=== PATIENT | male | born 1980 | race American Indian/Alaskan Native ===

== ENCOUNTER 2022-01-09 02:32 | Inpatient (IN) | payer SELFPAY ==
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
--- NOTE | 2022-01-09 03:05 | XRay Report ---
XR chest 1V ap INDICATION / CLINICAL INFORMATION: Dyspnea. COMPARISON: None available. FINDINGS: Findings in the chest are accentuated by body habitus and phase of inspiration. SUPPORT DEVICES: None. HEART /PULMONARY VASCULATURE: Heart is accentuated by low lung volumes. LUNGS / PLEURA: There is asymmetric airspace opacity within the right lung base. Left lung appears cl ear of consolidation. No sizable pleural effusion. No pneumothorax. IMPRESSION: Airspace opacities in the right mid and lower lung, concerning for pneumonia. Signer Name: Yong Lerma MD Signed: 01/09/2022 3:00 AM Workstation Name: [id number]
[2022-01-09 03:08] LABS: ABG PCO2 41.6 mm Hg; ABG PH 7.382 pH Units (7.350-7.450)
[2022-01-09 03:09] LABS: ABG Base Excess -0.9 mmol/L (-2.0-3.0); ABG HCO3 24.2 mmol/L (20.0-26.0); ABG Methemoglobin 0.3 % (0.0-1.5); ABG Oxygen Saturation 98.7 % (95.0-99.0); ABG PO2 129.8 mm Hg (80.0-90.0)
[2022-01-09 03:27] LABS: Basophils % (Auto) 0.8 % (0.0-1.8); Eosinophils % (Auto) 0.6 % (0.0-4.3); Hematocrit 38.5 % (35.5-45.6); Hemoglobin 12.1 gm/dl (11.8-15.2); Lymphocytes # (Auto) 1.2 K/mm3 (1.2-5.4); Lymphocytes % (Auto) 18.9 % (13.4-35.0); Mean Corpuscular HGB Conc 31 % (32-34); Mean Corpuscular Volume 77 fl (84-94); Monocytes # (Auto) 0.2 K/mm3 (0.0-0.8); Monocytes % (Auto) 3.9 % (0.0-7.3); Platelet Count 187 K/mm3 (140-440); Red Blood Count 5.01 M/mm3 (3.65-5.03); Red Cell Distribution Width 14.2 % (13.2-15.2)
[2022-01-09 03:38] LABS: INR 0.95 (0.87-1.13); Partial Thromboplastin Time 25.5 Sec. (24.2-36.6)
[2022-01-09 03:47] LABS: Alanine Aminotransferase 56 units/L (7-56); Albumin 3.8 g/dL (3.9-5); BUN/Creatinine Ratio 16; Bilirubin,Direct < 0.2 mg/dL (0-0.2); Blood Urea Nitrogen 16 mg/dL (9-20); Hemolysis Index 11
[2022-01-09] MEDS ORDERED: POTASSIUM CHLORIDE ER 20 MEQ TAB PO ONE (04:18)
[2022-01-09] MEDS ORDERED: dexAMETHasone 4 MG/ML VIAL IV ONE (04:48)
[2022-01-09] MEDS ORDERED: cefTRIAXone/NS 2 GM/100 ML 2 GM/100 ML BAG IV ONE (04:49)
[2022-01-09] MEDS ORDERED: AZITHROMYCIN/NS 500 MG/250 ML 500 MG/250 ML BAG IV ONE (04:51)
[2022-01-09 04:56] LABS: Bilirubin,Urine NEG (Negative); Blood,Urine SM (Negative); Color,Urine Straw (Yellow); Hyaline Casts,Urine 2 /LPF; Mucus,Urine FEW /HPF; RBC,Urine < 1.0 /HPF (0.0-6.0); Urobilinogen,Urine < 2.0 mg/dL (<2.0)
[2022-01-09] MEDS ORDERED: ALBUTEROL 2.5 MG/3 ML NEBU IH PRN (05:05)
[2022-01-09] MEDS ORDERED: HYDROmorphone 1 MG/1 ML INJ IV PRN (05:05)
[2022-01-09] MEDS ORDERED: ONDANSETRON 4 MG/2 ML INJ IV PRN (05:05)
[2022-01-09] MEDS ORDERED: MORPHINE 2 MG/1 ML INJ IV PRN (05:05)
[2022-01-09] MEDS ORDERED: ACETAMINOPHEN 325 MG TAB PO PRN (05:05)
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
[2022-01-09] MEDS ORDERED: hydrALAZINE 20 MG/1 ML INJ IV PRN (05:20)
[2022-01-09] MEDS ORDERED: DEXTROSE 10% *Hypoglycemia IV PRN (05:20)
[2022-01-09] MEDS: IPRATROPIUM/ALBUTEROL SULFATE 3 ML AMPUL.NEB IH SCH ×3 (08:00→20:30)
--- NOTE | 2022-01-09 10:25 | Electrocardiograph Report ---
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
[2022-01-09] MEDS: FUROSEMIDE 40 MG/4 ML INJ IV SCH ×3 (10:37→17:20)
[2022-01-09] MEDS: INSULIN LISPRO 100 UNIT/ML SUB-Q SCH ×4 (10:37→21:41)
[2022-01-09 11:43] LABS: BUN/Creatinine Ratio 15; Blood Urea Nitrogen 15 mg/dL (9-20); Calcium 9.2 mg/dL (8.4-10.2); Hemolysis Index 2
[2022-01-09] MEDS: HEPARIN 5,000 UNIT/1 ML VIAL SUB-Q SCH ×2 (12:13→21:40)
[2022-01-09] MEDS: dexAMETHasone 4 MG/ML VIAL IV SCH (12:13)
[2022-01-09] MEDS: LISINOPRIL 5 MG TAB PO SCH (12:16)
[2022-01-09] MEDS: FAMOTIDINE 20 MG TAB PO SCH ×2 (12:16→21:40)
--- NOTE | 2022-01-09 12:54 | Vascular Lab Report ---
DUPLEX DOPPLER LOWER EXTREMITY VEINS, BILATERAL INDICATION: Shortness of Breath R/O DVT. TECHNIQUE: Duplex doppler imaging was performed through the veins of both lower extremities using ve nous compression and other maneuvers. COMPARISON: No relevant prior imaging study available. FINDINGS: Right Common femoral vein: Negative. Right Superficial femoral vein: Negative. Right Popliteal vein: Negative. Right Calf veins: Negative. Left Common femoral vein: Negative. Left Superficial femoral vein: Negative. Left Popliteal vein: Negative. Left Calf veins: Negative. Additional findings: There is mild nonspecific pedal edema bilaterally. Right popliteal cyst is ident ified measuring up to 3.3 cm in greatest dimension. IMPRESSION: No sonographic evidence for DVT in either lower extremity. Generalized edema. Right popliteal cyst. Signer Name: Wali Douglass Jr, MD Signed: 01/09/2022 12:50 PM Workstation Name: [id number]
--- NOTE | 2022-01-09 20:18 | Event Note ---
Date: 01/09/22 Brief progress note: Chart reviewed, patient interviewed and examined by me today. 41-year-old male with morbid obesity, suspected sleep apnea, HTN and DM has no health insurance. He will take his medications occasionally to stretch them. He is admitted for hypertensive urgency and dyspnea and a likely hypertensive heart failure. We will continue IV Lasix, BILL inhibitor and add Coreg. Symptoms improving since admitted. Echocardiogram ordered and cardiology consulted. Will monitor closely.
[2022-01-09] MEDS: carvediloL 6.25 MG TAB PO SCH (21:40)
[2022-01-10] MEDS ORDERED: MELATONIN 5 MG TAB PO ONE (01:00)
[2022-01-10 05:05] LABS: Basophils # (Auto) 0.1 K/mm3 (0.0-0.1); Hematocrit 37.8 % (35.5-45.6); Hemoglobin 11.9 gm/dl (11.8-15.2); Lymphocytes # (Auto) 1.4 K/mm3 (1.2-5.4); Lymphocytes % (Auto) 17.6 % (13.4-35.0); Mean Corpuscular HGB Conc 31 % (32-34); Mean Corpuscular Volume 77 fl (84-94); Monocytes # (Auto) 0.7 K/mm3 (0.0-0.8); Platelet Count 187 K/mm3 (140-440); Red Blood Count 4.91 M/mm3 (3.65-5.03); Red Cell Distribution Width 14.4 % (13.2-15.2)
[2022-01-10] MEDS: cefTRIAXone/NS 2 GM/100 ML 2 GM/100 ML BAG IV SCH (05:10)
[2022-01-10] MEDS: FUROSEMIDE 40 MG/4 ML INJ IV SCH ×2 (05:10→18:06)
[2022-01-10 05:27] LABS: BUN/Creatinine Ratio 17; Blood Urea Nitrogen 17 mg/dL (9-20); Calcium 9.2 mg/dL (8.4-10.2); Hemolysis Index 17
[2022-01-10] MEDS ORDERED: AZITHROMYCIN/NS 500 MG/250 ML 500 MG/250 ML BAG IV SCH (06:00)
[2022-01-10] MEDS: IPRATROPIUM/ALBUTEROL SULFATE 3 ML AMPUL.NEB IH SCH ×3 (08:09→20:14)
[2022-01-10] MEDS: INSULIN LISPRO 100 UNIT/ML SUB-Q SCH ×4 (09:45→22:15)
[2022-01-10] MEDS: carvediloL 6.25 MG TAB PO SCH (09:46)
[2022-01-10] MEDS: LISINOPRIL 5 MG TAB PO SCH (09:46)
[2022-01-10] MEDS: HEPARIN 5,000 UNIT/1 ML VIAL SUB-Q SCH ×2 (09:46→22:14)
[2022-01-10] MEDS: FAMOTIDINE 20 MG TAB PO SCH ×2 (09:46→22:14)
[2022-01-10] MEDS: dexAMETHasone 4 MG/ML VIAL IV SCH (09:46)
[2022-01-10] MEDS: AZITHROMYCIN 250 MG TAB PO SCH (09:50)
[2022-01-10] MEDS ORDERED: carvediloL 6.25 MG TAB PO SCH (12:35)
[2022-01-10] MEDS: POTASSIUM CHLORIDE ER 20 MEQ TAB PO SCH (12:53)
[2022-01-10] MEDS ORDERED: MAGNESIUM SULFATE 4 GM/100 ML BAG IV ONE (13:30)
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
--- NOTE | 2022-01-10 20:57 | Progress Note ---
Assessment and Plan Assessment and plan: 41 years old male with past medical history of morbid obesity, JAMILA on CPAP, hypertension, congestive heart failure, diabetes type 2 and noncompliance presents with progressive shortness of breath for the last couple of days. EMS found the patient tripoding with respiratory distress and diffuse Rales th roughout the bilateral lung field. Initial saturation was in the low 80s. And initial blood pressures was 260/140 with heart rate of 130. Subsequently patient was placed on CPAP and given 40 mg of IV Lasix and 2 g of magnesium as well as nitro. Patient has been ran out of his medication for a while. For the last 2 3 days patient feels shortness of breath but today shortness of breath became much worse with chest pain which improved after being placed to CPAP in the ambulance. Patient denied any increased swelling to the lower extremity. Or any other associated symptom. Patient is not vaccinated against COVID-19 In the emergency room patient is found to have BNP of 766. Troponin 0 0.010, glucose 331, potassium 3.4. Rest x-ray shows airspace opacities in the right mid and lower lung concerning for possible pneumonia. We are going to admit the patient we will put the patient on pneumonia and CHF pathway patient is on BiPAP. (1) Acute exacerbation of CHF (congestive heart failure) History of dilated cardiomyopathy Current Visit: Yes Status: Acute Plan to address problem: Patient with history of dilated cardiomyopathy. Noncompliant with medications and follow-up visits. Admitted the patient to the medical telemetry. Fluid restriction. Maintain input output. Patient is on BiPAP. Lasix 40 mg IV every 12 hours. Daily weight. Echocardiogram showed LVEF 20 to 25% with severe global LV hypokinesis, noted LVH, diastolic dysfunction indeterminate. Left atrium normal. Right atrium and RV mildly dilated. RV function normal. No valvular dysfunction. Likely etiology appears to be uncontrolled hypertension and JAMILA. Reportedly previous ischemic work-up negative. Cardiology consulted and evaluating. Dyspnea improving. (2) Acute respiratory failure with hypoxia Current Visit: Yes Status: Acute Plan to address problem: . Improving, wean O2 as tolerated. (3) Flash pulmonary edema likely from hypertensive urgency. Current Visit: Yes Status: Acute Plan to address problem: Fluid restriction. Maintain input output. Patient is on BiPAP. Lasix 40 mg IV every 12 hours. Daily weight. (4) diabetes mellitus, A1c 9.1 with hyperglycemia When out of Metformin Current Visit: Yes Status: Acute Plan to address problem: Resume Metformin. Insulin sliding scale. 1800 kcal ADA diet. Accu-Chek before meals and at bedtime with Humalog moderate dose coverage. Diabetic education. Will discontinue Decadron. (5) Hypertensive emergency Current Visit: Yes Status: Acute Plan to address problem: Resolved. BP control progressive improvement. Optimizing oral medical therapy. (6) Hypokalemia Current Visit: Yes Status: Acute Plan to address problem: Potassium is supplemented. Recheck BMP in the morning (7) likely not pneumonia and more likely CHF changes on CXR given the clinical setting. Current Visit: Yes Status: Acute Plan to address problem: DuoNeb by nebulizer every 4 hours. Albuterol via nebulizer every 4 hours. Start him antibiotics empirically. Rocephin 2 g IV daily. Zithromax 500 mg IV daily. Ordered blood cultures sputum culture. We will discontinue Decadron. Consult pulmonary if needed (8) PCR test negative for COVID-19 virus infection (9) Morbid obesity Current Visit: Yes Status: Acute (10) obstructive sleep apnea, home CPAP malfunction Current Visit: Yes Status: Acute Plan to address problem: Patient reports new CPAP machine quit working about couple months ago. Patient is receiving BiPAP nightly here. He will need to resume using CPAP upon discharge. (11) DVT prophylaxis Current Visit: Yes Status: Acute Plan to address problem: Heparin 5000 units subcu every 12 hours for DVT prophylaxis. Pepcid 20 mg p.o. twice daily for GI prophylaxis. Patient is a full code Discussed with the patient and the nursing staff. History Interval history: Patient reports breathing much better. BP control is improving. Patient reports that he gets multiple times during the night due to sleep apnea. He is receiving BiPAP nightly. He was using CPAP nightly but is quit working couple months ago. Patient denies chest pains, palpitations or lightheadedness. Remains on IV Lasix for aggressive diuresis. Cardiology is evaluating. Hospitalist Physical - Constitutional Vitals: Temp Pulse Resp BP Pulse Ox 98.7 F 90 16 134/80 100 01/10/22 16:18 01/10/22 20:15 01/10/22 20:15 01/10/22 16:18 01/10/22 20:19 General appearance: Present: no acute distress, obese (Morbidly obese) - EENT Eyes: Present: PERRL, EOM intact ENT: clear oral mucosa (Oropharynx crowded.) - Neck Neck: Present: supple - Respiratory Respiratory effort: normal Respiratory: bilateral: diminished, negative: rales, rhonchi, wheezing - Cardiovascular Rhythm: regular - Extremities Extremities: No edema - Abdominal General gastrointestinal: soft, non-tender - Integumentary Integumentary: Absent: rash - Psychiatric Psychiatric: appropriate mood/affect - Neurologic Neurologic: no focal deficits, moves all extremities HEART Score - HEART Score Troponin: Troponin T < 0.010 ng/mL (0.00-0.029) 01/09/22 09:05 Results - Labs CBC & Chem 7: 01/10/22 04:28 01/10/22 04:28 Labs: Laboratory Last Values WBC 7.9 K/mm3 (4.5-11.0) 01/10/22 04:28 RBC 4.91 M/mm3 (3.65-5.03) 01/10/22 04:28 Hgb 11.9 gm/dl (11.8-15.2) 01/10/22 04:28 Hct 37.8 % (35.5-45.6) 01/10/22 04:28 MCV 77 fl (84-94) L 01/10/22 04:28 MCH 24 pg (28-32) L 01/10/22 04:28 MCHC 31 % (32-34) L 01/10/22 04:28 RDW 14.4 % (13.2-15.2) 01/10/22 04:28 Plt Count 187 K/mm3 (140-440) 01/10/22 04:28 Lymph % (Auto) 17.6 % (13.4-35.0) 01/10/22 04:28 [place] % (Auto) 9.0 % (0.0-7.3) H 01/10/22 04:28 Eos % (Auto) 0.0 % (0.0-4.3) 01/10/22 04:28 Baso % (Auto) 1.0 % (0.0-1.8) 01/10/22 04:28 Lymph # (Auto) 1.4 K/mm3 (1.2-5.4) 01/10/22 04:28 [place] # (Auto) 0.7 K/mm3 (0.0-0.8) 01/10/22 04:28 Eos # (Auto) 0.0 K/mm3 (0.0-0.4) 01/10/22 04:28 Baso # (Auto) 0.1 K/mm3 (0.0-0.1) 01/10/22 04:28 Seg Neutrophils % 72.4 % (40.0-70.0) H 01/10/22 04:28 Seg Neutrophils # 5.7 K/mm3 (1.8-7.7) 01/10/22 04:28 PT 13.7 Sec. (12.2-14.9) 01/09/22 02:57 INR 0.95 (0.87-1.13) 01/09/22 02:57 APTT 25.5 Sec. (24.2-36.6) 01/09/22 02:57 ABG pH 7.382 pH Units (7.350-7.450) 01/09/22 03:00 ABG pCO2 41.6 mm Hg 01/09/22 03:00 ABG pO2 129.8 mm Hg (80.0-90.0) H 01/09/22 03:00 ABG HCO3 24.2 mmol/L (20.0-26.0) 01/09/22 03:00 ABG O2 Saturation 98.7 % (95.0-99.0) 01/09/22 03:00 ABG Base Excess -0.9 mmol/L (-2.0-3.0) 01/09/22 03:00 ABG Hemoglobin 12.9 gm/dl (14.0-18.0) L 01/09/22 03:00 ABG Carboxyhemoglobin 2.7 % (0.0-5.0) 01/09/22 03:00 ABG Methemoglobin 0.3 % (0.0-1.5) 01/09/22 03:00 Oxyhemoglobin 95.7 % (95.0-99.0) 01/09/22 03:00 FiO2 100.0 % 01/09/22 03:00 Sodium 141 mmol/L (137-145) 01/10/22 04:28 Potassium 3.8 mmol/L (3.6-5.0) 01/10/22 04:28 Chloride 103.5 mmol/L (98-107) 01/10/22 04:28 Carbon Dioxide 23 mmol/L (22-30) 01/10/22 04:28 Anion Gap 18 mmol/L 01/10/22 04:28 BUN 17 mg/dL (9-20) 01/10/22 04:28 Creatinine 1.0 mg/dL (0.8-1.3) 01/10/22 04:28 Estimated GFR > 60 ml/min 01/10/22 04:28 BUN/Creatinine Ratio 17 % 01/10/22 04:28 Glucose 269 mg/dL (75-100) H 01/10/22 04:28 POC Glucose 215 mg/dL (70-105) H 01/10/22 20:25 Hemoglobin A1c 9.1 % (4-6) H 01/09/22 02:57 Calcium 9.2 mg/dL (8.4-10.2) 01/10/22 04:28 Magnesium 1.70 mg/dL (1.7-2.3) 01/10/22 04:28 Total Bilirubin 0.70 mg/dL (0.1-1.2) 01/09/22 02:57 Direct Bilirubin < 0.2 mg/dL (0-0.2) 01/09/22 02:57 Indirect Bilirubin 0.5 mg/dL 01/09/22 02:57 AST 55 units/L (5-40) H 01/09/22 02:57 ALT 56 units/L (7-56) 01/09/22 02:57 Alkaline Phosphatase 99 units/L (35-129) 01/09/22 02:57 Total Creatine Kinase 315 units/L (55-170) H 01/09/22 02:57 CK-MB (CK-2) 4.0 ng/mL (0.0-4.0) 01/09/22 02:57 CK-MB (CK-2) Rel Index 1.2 (0-4) 01/09/22 02:57 Troponin T < 0.010 ng/mL (0.00-0.029) 01/09/22 09:05 NT-Pro-B Natriuret Pep 766.0 pg/mL (0-450) H 01/09/22 02:57 Total Protein 7.0 g/dL (6.3-8.2) 01/09/22 02:57 Albumin 3.8 g/dL (3.9-5) L 01/09/22 02:57 Albumin/Globulin Ratio 1.2 % 01/09/22 02:57 Urine Color Straw (Yellow) 01/09/22 04:46 Urine Turbidity Clear (Clear) 01/09/22 04:46 Urine pH 5.0 (5.0-7.0) 01/09/22 04:46 Ur Specific [place] 1.009 (1.003-1.030) 01/09/22 04:46 Urine Protein 100 mg/dl mg/dL (Negative) 01/09/22 04:46 Urine Glucose (UA) 150 mg/dL (Negative) 01/09/22 04:46 Urine Ketones Neg mg/dL (Negative) 01/09/22 04:46 Urine Blood Sm (Negative) 01/09/22 04:46 Urine Nitrite Neg (Negative) 01/09/22 04:46 Urine Bilirubin Neg (Negative) 01/09/22 04:46 Urine Urobilinogen < 2.0 mg/dL (<2.0) 01/09/22 04:46 Ur Leukocyte Esterase Neg (Negative) 01/09/22 04:46 Urine WBC (Auto) 4.0 /HPF (0.0-6.0) 01/09/22 04:46 Urine RBC (Auto) < 1.0 /HPF (0.0-6.0) 01/09/22 04:46 Hyaline Casts 2 /LPF 01/09/22 04:46 Urine Mucus Few /HPF 01/09/22 04:46 Coronavirus (PCR) Negative (Negative) 01/10/22 08:12 Microbiology: Microbiology 01/09/22 04:46 Urine,Clean Catch Urine Culture - Preliminary NO GROWTH AFTER 24 HOURS 01/09/22 03:49 Peripheral/Venous Blood Culture - Preliminary NO GROWTH AFTER 24 HOURS 01/09/22 02:57 Peripheral/Venous Blood Culture - Preliminary NO GROWTH AFTER 24 HOURS Active Medications - Current Medications Current Medications: Generic Name Dose Route Start Last Admin Trade Name Freq PRN Reason Stop Dose Admin Acetaminophen 650 mg 01/09/22 05:05 Acetaminophen 325 Mg Tab PO Q4H PRN Pain MILD(1-3)/Fever >100.5/MARTINEZ Albuterol 2.5 mg 01/09/22 05:05 Albuterol 2.5 Mg/3 Ml Nebu IH Q3HRT PRN Shortness Of Breath Albuterol/Ipratropium 1 ampul 01/09/22 20:00 01/10/22 20:14 Ipratropium/Albuterol Sulfate 3 Ml Ampul.Neb IH 1 ampul TIDRT MELANIE Administration Azithromycin 500 mg 01/10/22 10:00 01/10/22 09:50 Azithromycin 250 Mg Tab PO 01/13/22 10:01 500 mg QDAY MELANIE Administration Protocol Carvedilol 25 mg 01/10/22 22:00 Carvedilol 25 Mg Tab PO Q12HR MELANIE Dexamethasone 6 mg 01/09/22 10:00 01/10/22 09:46 Dexamethasone 4 Mg/Ml Vial IV 6 mg DAILY MELANIE Administration Dextrose 0 ml 01/09/22 05:20 Dextrose 10% *Hypoglycemia IV DIRECT PRN Hypoglycemia Protocol Famotidine 20 mg 01/09/22 10:00 01/10/22 09:46 Famotidine 20 Mg Tab PO 20 mg BID MELANIE Administration Furosemide 40 mg 01/09/22 06:00 01/10/22 18:06 Furosemide 40 Mg/4 Ml Inj IV 40 mg BID@0600,1800 MELANIE Administration Heparin Sodium (Porcine) 5,000 unit 01/09/22 10:00 01/10/22 09:46 Heparin 5,000 Unit/1 Ml Vial SUB-Q 5,000 unit Q12HR MELANIE Administration Hydralazine HCl 10 mg 01/09/22 05:20 Hydralazine 20 Mg/1 Ml Inj IV Q6H PRN Blood Pressure Ceftriaxone Sodium 2 gm in 100 mls @ 200 mls/hr 01/10/22 06:00 01/10/22 05:10 Rocephin/Ns 2 Gm/100 Ml IV 01/13/22 06:29 200 mls/hr Q24H MELANIE Administration Protocol Insulin Human Lispro 0 unit 01/09/22 07:30 01/10/22 18:06 Insulin Lispro 100 Unit/Ml SUB-Q 8 unit ACHS MELANIE Administration Protocol Lisinopril 2.5 mg 01/09/22 10:00 01/10/22 09:46 Lisinopril 5 Mg Tab PO 2.5 mg QDAY MELANIE Administration Morphine Sulfate 2 mg 01/09/22 05:05 Morphine 2 Mg/1 Ml Inj IV Q4H PRN Pain, Moderate (4-6) Ondansetron HCl 4 mg 01/09/22 05:05 Ondansetron 4 Mg/2 Ml Inj IV Q8H PRN Nausea And Vomiting Potassium Chloride 40 meq 01/10/22 13:00 01/10/22 12:53 Potassium Chloride Er 20 Meq Tab PO 40 meq QDAY MELANIE Administration Sodium Chloride 10 ml 01/09/22 10:00 01/10/22 09:47 Sodium Chloride 0.9% 10 Ml Flush Syringe IV 10 ml BID MELANIE Administration Sodium Chloride 10 ml 01/09/22 05:05 Sodium Chloride 0.9% 10 Ml Flush Syringe IV PRN PRN LINE FLUSH Nutrition/Malnutrition Assess - Dietary Evaluation Nutrition/Malnutrition Findings: Nutrition Notes Start: 01/09/22 16:01 Freq: Status: Active Protocol: Document 01/09/22 16:01 AGUSTÍN (Rec: 01/09/22 16:08 AGUSTÍN [id number]) Nutrition Notes Need for Assessment generated from: MD Order,Education Initial or Follow up Brief Note Current Diagnosis Diabetes,Hypertension, Respiratory Failure Other Pertinent Diagnosis CHF, Pulmonary Edema, Pneumonia, COVID-19 pui, Hypokalemia... Current Diet Cardiac/Consistent Carbohydrates Diet (since B ). Height 5 ft 11 in Weight 145.15 kg [place] Body Weight (kg) 78.18 BMI 44.6 Intake Prior to Admission Good Weight change and time frame Pt denies having loss body weight [employer]. Weight Status Morbidly Obese Subjective/Other Information RD consult for Nutrition Education. No reports available on Pt's PO intake of meals at the time . Pt still on critical conditions, not a candidate for Nutrition Education at the time, will assess feasibility on F/U. Percent of energy/protein needs met: Prescribed Cardiac/Consistent Carbohydrates Diet provides for energy/protein needs (1, 977 Kcal/86 g) during LOS. Nutrition Intervention Follow-Up By: 01/16/22 Additional Comments Nutrition education will be provided on F/U, if feasible. Continue monitoring food tolerance, %PO intake of meals , and BM.
[2022-01-10] MEDS: carvediloL 25 MG TAB PO SCH (22:14)
[2022-01-11] MEDS: FUROSEMIDE 40 MG/4 ML INJ IV SCH ×2 (05:24→17:29)
[2022-01-11] MEDS: cefTRIAXone/NS 2 GM/100 ML 2 GM/100 ML BAG IV SCH (05:24)
[2022-01-11] MEDS: INSULIN LISPRO 100 UNIT/ML SUB-Q SCH ×3 (07:45→17:30)
[2022-01-11] MEDS ORDERED: glipiZIDE XL 5 MG TAB PO SCH (08:00)
[2022-01-11] MEDS ORDERED: INSULIN GLARGINE 100 UNITS/ML SUB-Q SCH (08:00)
[2022-01-11] MEDS: metFORMIN XR 500MG TAB PO SCH ×2 (08:23→17:29)
[2022-01-11] MEDS: IPRATROPIUM/ALBUTEROL SULFATE 3 ML AMPUL.NEB IH SCH ×2 (09:11→14:49)
[2022-01-11] MEDS ORDERED: LISINOPRIL 20 MG TAB PO SCH (10:00)
--- NOTE | 2022-01-11 10:59 | Progress Note ---
Assessment and Plan - Patient Problems (1) Acute on chronic systolic heart failure Current Visit: Yes Status: Acute Plan to address problem: Patient with a long history of a severe dilated nonischemic cardiomyopathy, noncompliant with medical therapy, noncompliant with physician follow-up visits, admitted with acute exacerbation of chronic systolic heart failure. He has been on no medications for at least 2 weeks. Left ventricular systolic ejection fraction on the current echocardiogram is estimated 20 to 25%. Heart failure symptoms have resolved on inpatient management including IV diuretics. Okay for discharge on optimal guideline directed medical therapy, continue intravenous diuretics, and recommend social work msw intervention for outpatient management including medical therapy and physician follow-ups. Subjective Date of service: 01/11/22 Principal diagnosis: Shortness of breath Interval history: Patient looks and feels comfortable, shortness of breath has resolved, he looks and feels well, wants to go home. Objective Vital Signs Temp Pulse Pulse Pulse Resp Resp BP 01/11/22 09:17 01/11/22 08:00 82 16 01/11/22 05:00 74 01/11/22 03:15 98.4 F 80 19 147/76 01/11/22 02:00 84 18 01/11/22 01:15 85 22 01/11/22 00:00 98.3 F 77 20 122/81 01/10/22 22:14 83 145/84 01/10/22 21:00 108 H 01/10/22 20:27 98.1 F 83 19 145/84 01/10/22 20:19 01/10/22 20:15 90 16 01/10/22 16:18 98.7 F 83 18 134/80 01/10/22 14:00 87 84 18 17 01/10/22 13:00 81 Pulse Ox 01/11/22 09:17 97 01/11/22 08:00 01/11/22 05:00 01/11/22 03:15 98 01/11/22 02:00 99 01/11/22 01:15 100 01/11/22 00:00 96 01/10/22 22:14 01/10/22 21:00 01/10/22 20:27 98 01/10/22 20:19 100 01/10/22 20:15 01/10/22 16:18 99 01/10/22 14:00 99 01/10/22 13:00 - Physical Examination General: Appears Well, No Apparent Distress HEENT: Positive: PERRL Neck: Positive: neck supple Cardiac: Positive: Reg Rate and Rhythm Lungs: Positive: Decreased Breath Sounds Neuro: Positive: Grossly Intact Abdomen: Positive: Soft Skin: Positive: Clear Extremities: Present: edema (Trace)
[2022-01-11] MEDS: carvediloL 25 MG TAB PO SCH (11:25)
[2022-01-11] MEDS: AZITHROMYCIN 250 MG TAB PO SCH (11:25)
[2022-01-11] MEDS: POTASSIUM CHLORIDE ER 20 MEQ TAB PO SCH (11:25)
[2022-01-11] MEDS: FAMOTIDINE 20 MG TAB PO SCH (11:26)
[2022-01-11] MEDS: HEPARIN 5,000 UNIT/1 ML VIAL SUB-Q SCH (11:26)
[2022-01-11] MEDS ORDERED: POLYETHYLENE GLYCOL 3350 17 GM POWDER PO ONE (14:35)
--- NOTE | 2022-01-11 16:22 | Discharge Summary ---
Providers - Providers Date of Admission: 01/09/22 05:05 Attending physician: LANA DOUGHERTY MD 01/09/22 05:05 Consult to Dietitian/Nutrition [CONS] Routine Physician Instructions: Reason For Exam: Reason for Consult: Diet education 01/09/22 17:20 Consult to Physician [CONS] Routine Comment: Consulting Provider: RONI OLMSTEAD Physician Instructions: Reason For Exam: CHF Primary care physician: [employer] Hospitalization Condition: Stable Hospital course: 41 years old male with past medical history of morbid obesity, JAMILA on CPAP, hypertension, nonischemic cardiomyopathy, congestive heart failure, diabetes type 2 and noncompliance presents with progressive shortness of breath for the last couple of days. EMS found the patient tripoding with respiratory distress and diffuse Rales throughout the bilateral lung field. Initial saturation was in the low 80s. And initial blood pressures was 260/140 with heart rate of 130. Subsequently patient was placed on CPAP and given 40 mg of IV Lasix and 2 g of magnesium as well as nitro. Patient has been ran out of his medication for a while. For the last 2 3 days patient feels shortness of breath but today shortness of breath became much worse with chest pain which improved after being placed to CPAP in the ambulance. Patient denied any increased swelling to the lower extremity. Or any other associated symptom. Patient is not vaccinated against COVID-19. In the emergency room patient is found to have BNP of 766. Troponin 0 0.010, glucose 331, potassium 3.4. Chest x-ray shows airspace opacities in the right mid and lower lung likely from CHF tho pneumonia is other possibility. Patient was placed on CHF pathway on BiPAP. (1) Acute exacerbation of CHF (congestive heart failure) History of dilated cardiomyopathy Current Visit: Yes Status: Acute Plan to address problem: Patient with history of dilated cardiomyopathy. Noncompliant with medications and follow-up visits. Admitted the patient to the medical telemetry. Fluid restriction. Maintain input output. Patient is on BiPAP. Lasix 40 mg IV every 12 hours. Daily weight. Echocardiogram showed LVEF 20 to 25% with severe global LV hypokinesis, noted LVH, diastolic dysfunction indeterminate. Left atrium normal. Right atrium and RV mildly dilated. RV function normal. No valvular dysfunction. Likely etiology appears to be uncontrolled hypertension and JAMILA. Reportedly previous ischemic work-up negative. Dr. Olmstead,cardiology consulted and evaluated. Patient symptoms progress improved with aggressive diuresis with the Lasix 40 mg twice daily and optimizing HTN/CHF regimen. Patient was able to a mbulate without difficulty on room air. He did not have PND but would wake up frequently due to sleep apnea issues. Telemetry did not record any significant arhythemias. Patient was counseled on the importance of compliance with medications and follow-up doctors visits and he verbalizes understanding. Cardio recommended discharging patient for outpatient follow-up. He will see cardiology in 2 weeks and PCP in 1 week for follow-up. (2) Acute respiratory failure with hypoxia Current Visit: Yes Status: Acute Plan to address problem: . Improving, wean O2 as tolerated. (3) Flash pulmonary edema likely from hypertensive urgency. Current Visit: Yes Status: Acute Plan to address problem: Fluid restriction. Maintain input output. Patient is on BiPAP. Lasix 40 mg IV every 12 hours. Daily weight. (4) diabetes mellitus, A1c 9.1 with hyperglycemia When out of Metformin Current Visit: Yes Status: Acute Plan to address problem: Increase Metformin dose 2000 mg twice daily and and glipizide 5 mg daily in a.m. Insulin sliding scale. 1800 kcal ADA diet. Accu-Chek before meals and at bedtime with Humalog moderate dose coverage. Diabetic education. Will discontinue Decadron. (5) Hypertensive emergency Current Visit: Yes Status: Acute Plan to address problem: Resolved. BP control progressive improvement. Optimizing oral medical therapy. (6) Hypokalemia Current Visit: Yes Status: Acute Plan to address problem: Potassium is supplemented. Recheck BMP in the morning (7) likely not pneumonia and more likely CHF changes on CXR given the clinical setting. Current Visit: Yes Status: Acute Plan to address problem: DuoNeb by nebulizer every 4 hours. Albuterol via nebulizer every 4 hours. Start him antibiotics empirically. Rocephin 2 g IV daily. Zithromax 500 mg IV daily. Ordered blood cultures sputum culture. We will discontinue Decadron. Consult pulmonary if needed (8) PCR test negative for COVID-19 virus infection (9) Morbid obesity Current Visit: Yes Status: Acute (10) obstructive sleep apnea, home CPAP malfunction Current Visit: Yes Status: Acute Plan to address problem: Patient reports new CPAP machine quit working about couple months ago. Patient is receiving BiPAP nightly here. He will need to resume using CPAP upon discharge. 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 Nonischemic cardiomyopathy. Acute on chronic systolic heart failure. Noncompliance. Type 2 diabetes mellitus, A1c 9.1. JAMILA, off CPAP x2 months or so. Morbid obesity Time spent for discharge: 35 minutes Core Measure Documentation - Palliative Care Palliative Care/ Comfort Measures: Not Applicable - Core Measures Any of the following diagnoses?: heart failure - Heart Failure Discharge Requirements BILL/ARB for LVSD if EF <40%: Yes Beta pino at discharge: Yes Exam - Constitutional Vitals: Temp Pulse Resp BP Pulse Ox 98.4 F 77 14 147/76 99 01/11/22 03:15 01/11/22 14:00 01/11/22 14:00 01/11/22 03:15 01/11/22 14:00 General appearance: Present: no acute distress, obese (Morbidly obese) - EENT Eyes: Present: PERRL, EOM intact - Neck Neck: Present: supple - Respiratory Respiratory effort: normal Respiratory: bilateral: CTA - Cardiovascular Rhythm: regular - Extremities Extremities: No edema - Abdominal General gastrointestinal: Present: soft, non-tender - Integumentary Integumentary: Absent: rash - Musculoskeletal Musculoskeletal: strength equal bilaterally - Psychiatric Psychiatric: appropriate mood/affect - Neurologic Neurologic: no focal deficits, moves all extremities Plan Activity: advance as tolerated Diet: low fat, low cholesterol, low salt, diabetic (1600 alysha) Special Instructions: restrict fluid intake to (1500 ml) Additional Instructions: Wear CPAP every night, you have sleep apnea. You have congestive heart failure. Do not skip or miss your medications. 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 Check your blood sugars at home before each meal. Your diabetes is poorly controlled, hemoglobin A1c 9.1. See family doctor for blood sugar control in 2 weeks Follow up with: SHEFALI PISANO MD [Primary Care Provider] - 3-5 Days RONI OLMSTEAD MD [Staff Physician] - 14 Days Prescriptions: AtorvaSTATin [Lipitor] 20 mg PO QHS #30 tab Spironolactone [Aldactone] 25 mg PO QDAY #30 tablet Aspirin [Aspirin BABY CHEW TAB] 81 mg PO QDAY #100 tab.chew carvediloL [Coreg] 25 mg PO BID #60 tablet Losartan [Cozaar] 100 mg PO QDAY #30 glipiZIDE XL [Glucotrol Xl] 5 mg PO QDDIAB #30 tablet Furosemide [Lasix] 40 mg PO BID #60 Metformin HCl [metFORMIN ER Gastric] 1,000 mg PO BID #60
[2022-01-11 16:57] VITALS: BP 153/94
== END 2022-01-11 18:06 | disposition home or self-care (01) | DRG 291 ==
LOC: ED 02:32 → 4A 05:05
PROVIDERS: ADMIT Hospitalist; ATTEND Internal Medicine
PROC: 4A033R1 Measurement of Arterial Saturation, Peripheral, Percutaneous Approach (ICD-10-PCS; principal; 2022-01-09)
PROC: 5A09457 Assistance with Respiratory Ventilation, 24-96 Consecutive Hours, Continuous Positive Airway Pressure (ICD-10-PCS; 2022-01-09)
DX: I11.0 Hypertensive heart disease with heart failure (principal); J18.9 Pneumonia, unspecified organism; J96.01 Acute respiratory failure with hypoxia; J81.0 Acute pulmonary edema; I50.23 Acute on chronic systolic (congestive) heart failure; I16.1 Hypertensive emergency; Z68.41 Body mass index [BMI] 40.0-44.9, adult; Z20.822 Contact with and (suspected) exposure to COVID-19; E11.65 Type 2 diabetes mellitus with hyperglycemia; E87.6 Hypokalemia; E66.01 Morbid (severe) obesity due to excess calories; Z91.19 Patient's noncompliance with other medical treatment and regimen
CPT/HCPCS: 36415; 71045; 80048; 80076; 81001; 82550; 82553; 82803; 82962; 83036; 83735; 83880; 84484; 85025; 85610; 85730; 87040; 87086; 93005; 93010; 93306; 93970; 94640; 94660; 94760; G0378; Q9967; C8929; J0456; J0696; J1100; J1644; J1815; J1940; J3475; U0003